=== PATIENT | female | born 1970 | race Caucasian/White ===

== ENCOUNTER 2021-07-22 07:46 | Outpatient (RCR) | payer BC, SELFPAY ==
[2021-07-22] MEDS: FAMOTIDINE 20 MG TABLET PO (11:47)
[2021-07-22] MEDS: ACETAMINOPHEN 325 MG TABLET 650 MG PO (11:47)
[2021-07-22] MEDS: diphenhydrAMINE HCl CAP 25 MG CAPSULE PO (11:49)
[2021-07-22 12:04] VITALS: BP 121/70; PULSE 78; TEMP 35.8; O2SAT 96
--- NOTE | 2021-07-22 12:48 | PC.NURSE ---
Patient does not know or have a list of home medication.
[2021-07-22 13:24] VITALS: BP 112/72
== END 2021-07-22 17:01 ==
LOC: AMCINF 07:46
PROVIDERS: PCP Internal Medicine; Visit Provider Internal Medicine Hematology & Oncology
DX: U07.1 COVID-19 (principal); J44.9 Chronic obstructive pulmonary disease, unspecified
CPT/HCPCS: A9270; M0245; Q0245

== ENCOUNTER 2024-12-23 08:01 | Outpatient (CLI) | payer OTHER, SELFPAY ==
--- OUTSIDE RECORDS SUMMARY | 2024-12-23 08:04 | XMS_ITS | Clinical Summary ---
Author Organization [facility] [id number] [facility] Address [address] [place] [address] Care Team Providers Care Regional Clinical Director Name Role Phone Rick Wilson MD Primary Care Provider [phone] Harshad Juares DPM Unavailable [phone] Allergies No known active allergies Medications venlafaxine XR (EFFEXOR-XR) 150 mg 24 hr capsule Take 2 capsules by mouth daily 1 Active traZODone (DESYREL) 150 mg tablet TAKE 1 TABLET(150 MG) BY MOUTH DAILY 1 Active omeprazole (PriLOSEC) 40 mg capsule TK 1 C PO QD 30 MIN B FATIMAH 1 Active methotrexate 2.5 mg tablet Take 15 mg by mouth once a week 9 Active meloxicam (MOBIC) 15 mg tablet Take 15 mg by mouth daily 1 Active folic acid (FOLVITE) 1 mg tablet Take 1 mg by mouth daily 9 Active LORazepam (ATIVAN) 1 mg tablet Take 1 mg by mouth 2 (two) times a day as needed 9 Active estradioL (ESTRACE) 0.01 % (0.1 mg/gram) vaginal cream INSERT 1 GRAM VAGINALLY AT BEDTIME 3 TIMES PER WEEK 1 Active Aimovig Autoinjector 70 mg/mL auto-injector subcutaneous injection INJECT 1 PEN INTO THE SKIN MONTHLY 1 Active cholecalciferol (VITAMIN D-3) 25 mcg (1,000 unit) tablet Take 1 tablet by mouth daily Active cetirizine (ZyrTEC) 10 mg tablet Take 1 tablet by mouth daily Active busPIRone (BUSPAR) 7.5 mg tablet TAKE 1 TABLET(7.5 MG) BY MOUTH TWICE DAILY 1 Active benzonatate (TESSALON) 100 mg capsule Take 100 mg by mouth 1 Active acetaminophen-asp irin-caffeine (EXCEDRIN MIGRAINE) 250-250-65 mg per tablet Take 2 tablets by mouth daily as needed Active albuterol HFA (PROVENTIL HFA,VENTOLIN HFA,PROAIR HFA) 90 mcg/actuation inhaler Inhale 2 puffs daily 1 Active predniSONE (DELTASONE) 20 mg tablet Take 2 tablets (40 mg) by mouth daily 10 tablet 1 Active Active Problems Problem Noted Date Diagnosed Date COVID-19 07/20/2021 Pain in both feet 12/05/2017 Assessment & Plan (02/01/2018 5:33 PM CDT): She has a history of crohn's disease, plantar fascitis, mouth sores, nose sores, photosensitive rashes, and raynaud's sx. Her work up showed positive JESSIKA (1:5120). All other serologies were negative and additional lab work was WNL. There was no evidence of erosive changes consistent w/ inflammatory arthritis on her xrays. Her bilateral foot us did not show any erosions, synovial hypertrophy, synovitis or effusions. She is doing better w/ the orthotics from her dimpling machine operator. Discussed w/ pt possible seronegative spa w/ potential to develop CTD/SLE type picture given strong +JESSIKA. Follow up in 4 mo, sooner if needed Assessment & Plan (12/05/2017 4:55 PM CDT): 47 yof w/ a history of crohn's disease, plantar fascitis, mouth sores, nose sores, photosensitive rashes, and raynaud's sx. She reports today she has minimal pain in her feet today. She is wearing orthotics per her dimpling machine operator and is taking meloxicam 7.5 mg once daily. Discussed results of recent work up w/ patient. Serologies showed positive JESSIKA (1:5120). All other serologies were negative and additional lab work was WNL. There was no evidence of erosive changes consistent w/ inflammatory arthritis on her xrays. The us of her foot/ankle is scheduled for later in the month. Discussed w/ pt possible seronegative spa w/ potential to develop CTD/SLE type picture given +JESSIKA. Pt will call 1 week after her us. Will follow up pending results. Positive JESSIKA (antinuclear antibody) 11/16/2017 Assessment & Plan (02/01/2018 5:27 PM CDT): Recent AVISE testing showed +JESSIKA (1:5120). The rest of the serologies were negative. Will continue to monitor for change in serologies. Assessment & Plan (12/05/2017 4:54 PM CDT): Recent AVISE testing showed +JESSIKA (1:5120). The rest of the serologies were negative. Will continue to monitor for change in serologies. Assessment & Plan (11/16/2017 10:42 AM CDT): 47 yof w/ history of frequent sinus trouble and Crohn's disease who reports pain in bilateral feet and reported elevated inflammatory markers. She has associated mouth sores, photosensitive rashes, bilateral plantar fascitis, and fatigue. Will evaluate w/ full work up including: blood work (w/ AVISE and vasculitis panel), xrays of hands and wrists, and a left ankle/foot us ([facility]). She will follow up in 3-4 weeks to review testing and discuss treatment plan. Pt reports she recently had xrays of bilateral feet and ankles. She will contact Dr. Harshad Juares's office to send us those results. Pt seen w/ Dr. Jordan Synovial hypertrophy 11/16/2017 Medical History Medical History Date Comments Arthritis Chron nephritic syndrome, diffuse endocapill pro lif glomerulonephritis Asthma Covid-19 Social History Tobacco Use Types Packs/Day Years Used Date Smoking Tobacco: Never Assessed Comments No Sex and Gender Information Value Date Recorded Sex Assigned at Not on file Legal Sex Female 10:38 AM CDT Gender Identity Not on file Sexual Orientation Not on file Obstetrics History Last Filed Vital Signs Vital Sign Reading Time Taken Comments Blood Pressure 93/72 07/20/2021 12:11 PM PUPPY SITTER Pulse 93 07/20/2021 2:45 PM PUPPY SITTER Temperature 36.7 C (98.1 F) 07/20/2021 10:36 AM PUPPY SITTER Respiratory Rate 20 07/20/2021 2:45 PM PUPPY SITTER Oxygen Saturation 93% 07/20/2021 2:45 PM PUPPY SITTER Inhaled Oxygen Concentration - - Weight 81.6 kg (180 lb) 07/20/2021 8:55 AM PUPPY SITTER Height 167.6 cm (5' 6) 07/20/2021 8:55 AM PUPPY SITTER Body Mass Index 29.05 07/20/2021 8:55 AM PUPPY SITTER Plan of Treatment Health Maintenance Due Date Last Done Comments Colon Cancer Screening-Colonoscopy 1968 Depression Screening 1968 Hepatitis C Screening 1970 Regular Well Visit/Exam 18-64 01/07/1986 Zoster Vaccine (1 of 2) 01/07/1987 Pneumococcal vaccine <65 (2 of 2 - PCV) 05/01/2015 05/01/2014 Cervical Cancer Screening 04/04/2024 04/04/2023, 03/2021 Breast Cancer Screening-Mammogram 06/07/2024 023, 06/07/2023 Influenza Vaccine (Season Ended) 2025 04/17/2020, 04/24/2017, 04/23/2017, Additional history exists DTaP/Tdap/Td Vaccine (2 - Td or Tdap) 11/01/2033 11/02/2023 Hepatitis B Screening Completed 03/18/2021, 019 Insurance [employer] Care Teams Regional Clinical Director Relationship Specialty Start Date End Date Rick Wilson MD PCP - General Internal Medicine 11/01/17 Harshad Juares DPM [address] [place] [address] Referring Physician Payroll Auditor 02/01/18
--- OUTSIDE RECORDS SUMMARY | 2024-12-23 08:04 | XMS_ITS | Referral Summary ---
Author Organization [facility] [id number] [facility] Address [address] [place] [address] Care Team Providers Care Assembly And Packing Supervisor Name Role Phone Rick Wilson MD Primary Care Provider [phone] Harshad Juares DPM Unavailable [phone] Allergies No known active allergies Medications venlafaxine [...] doing better w/ the orthotics from her proof sorter. Discussed w/ pt possible seronegative spa w/ [...] today. She is wearing orthotics per her proof sorter and is taking meloxicam 7.5 mg once [...] and wrists, and a left ankle/foot us ([facility]). She will follow up in 3-4 weeks to review testing and discuss treatment plan. Pt reports she recently had xrays of bilateral feet and ankles. She will contact Dr. Harshad Juares's office to send us those results. Pt seen w/ Dr. Jordan Synovial hypertrophy 11/16/2017 Social History Tobacco Use Types Packs/Day Years Used Date Smoking Tobacco: Never Assessed Comments No Sex and Gender Information Value Date Recorded Sex Assigned at Not on file Legal Sex Female 10:38 AM CDT Gender Identity Not on file Sexual Orientation Not on file Last Filed Vital Signs Vital Sign Reading Time Taken Comments Blood Pressure 93/72 07/20/2021 12:11 PM LITHOGRAPH PRINTER Pulse 93 07/20/2021 2:45 PM LITHOGRAPH PRINTER Temperature 36.7 C (98.1 F) 07/20/2021 10:36 AM LITHOGRAPH PRINTER Respiratory Rate 20 07/20/2021 2:45 PM LITHOGRAPH PRINTER Oxygen Saturation 93% 07/20/2021 2:45 PM LITHOGRAPH PRINTER Inhaled Oxygen Concentration - - Weight 81.6 kg (180 lb) 07/20/2021 8:55 AM LITHOGRAPH PRINTER Height 167.6 cm (5' 6) 07/20/2021 8:55 AM LITHOGRAPH PRINTER Body Mass Index 29.05 07/20/2021 8:55 AM LITHOGRAPH PRINTER Plan of Treatment Not on file Insurance [facility] ID[employer] Care Teams Assembly And Packing Supervisor Relationship Specialty Start Date End Date Rick Wilson MD PCP - General Internal Medicine 11/01/17 Harshad Juares DPM [address] [place] [address] Referring Physician Hyperion Analyst 02/01/18
== END 2024-12-23 08:02 | disposition home or self-care (01) ==
LOC: ANHAUDIO 08:01
PROVIDERS: PCP Internal Medicine; Visit Provider Otolaryngology
DX: J32.0 Chronic maxillary sinusitis (principal); J34.89 Other specified disorders of nose and nasal sinuses; H90.12 Conductive hearing loss, unilateral, left ear, with unrestricted hearing on the contralateral side
CPT/HCPCS: 92557; 92567